=== PATIENT | male | born 1990 | race Caucasian/White ===

== ENCOUNTER 2019-10-02 16:17 | Emergency (ER) | payer SELFPAY ==
[2019-10-02 16:27] VITALS: BP 135/75; PULSE 75; RESP 18; TEMP 36.3; O2SAT 94; BMI 31.9
[2019-10-02] MEDS: lidocaine 1% INJ 20 mL INJECTION (16:34)
[2019-10-02] MEDS: tetanus-diphtheria tox (adult) 0.5 mL SDV IM (16:40)
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
[2019-10-02 16:52] VITALS: BP 135/75; PULSE 75; RESP 18; TEMP 36.3; O2SAT 94
== END 2019-10-02 17:14 | disposition home or self-care (01) ==
LOC: ER 16:58
PROVIDERS: Emergency Provider Emergency Medicine
DX: S81.811A Laceration without foreign body, right lower leg, initial encounter (principal); W26.8XXA Contact with other sharp object(s), not elsewhere classified, initial encounter; Z23 Encounter for immunization
CPT/HCPCS: 12002; 12345; 90471; 90714; 99281; 99282

== ENCOUNTER 2020-03-27 19:53 | Emergency (ER) | payer SELFPAY ==
[2020-03-27 19:57] VITALS: BP 172/109; PULSE 103; RESP 18; TEMP 36.9; O2SAT 98; BMI 33.0
--- NOTE | 2020-03-27 20:20 | XRR_ITS ---
PROCEDURE INFORMATION: Exam: XR Chest, 1 View Exam date and time: 03/27/2020 8:25 PM Age: 29 years old Clinical indication: Type not specified; Patient HX: Chest pain and heaviness goes down left arm; Additional info: Cp TECHNIQUE: Imaging protocol: XR of the chest Views: 1 view. COMPARISON: No relevant prior studies available. FINDINGS: Lungs: Hyperinflation , interstitial prominence, and mild left basilar airspace disease. Pleural space: No pleural effusion. Heart/Mediastinum: No cardiomegaly. Bones/joints: Unremarkable. XR/XR chest 1V portable [id number] IMPRESSION: Hyperinflation , interstitial prominence, and mild left basilar airspace disease.
--- NOTE | 2020-03-27 20:20 | ECG_ITS ---
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1990 Requested By: Aleyda Linton Order Number: [id number] Reading MD: VENITA BEVERLY Measurements Intervals [place] Rate: 93 P: 12 WI: 140 QRS: 78 QRSD: 102 T: 10 QT: 333 QTc: 414 Interpretive Statements SINUS RHYTHM LOW QRS VOLTAGE IN PRECORDIAL LEADS [QRS DEFLECTION < 1.0 mV IN CHEST LEADS] INCOMPLETE RIGHT BUNDLE BRANCH BLOCK [90+ ms QRS DURATION, TERMINAL R IN V1/V2, 40+ ms S IN I/aVL/V4/V5/V6] WARNING: DATA QUALITY MAY AFFECT INTERPRETATION No previous ECG available for comparison Electronically Signed On 03-28-2020 19:58:59 [employer]PERVIS[employer] by VENITA BEVERLY [id number]
[2020-03-27 20:29] VITALS: BP 146/70; PULSE 60; RESP 20; O2SAT 97
--- NOTE | 2020-03-27 20:42 | W.ED.CHESTPA ---
HPI - Chest Pain General: Chief Complaint: Chest Pain Stated Complaint: CP Time Seen by Provider: 03/27/20 20:38 Source: patient Mode of arrival: ambulatory Limitations: no limitations History of Present Illness: HPI narrative: 29-year-old male states has been having constant chest pain over the last 2 days. He states that it is been sharp in nature and is worse with palpation and movement. States is worse with deep breaths as well. He denies any shortness of breath. He denies any fever. He had no recent long trips or surgeries. Rates his pain a 4 out of 10 currently. MD complaint: chest pain Onset (ago): day(s) Associated symptoms: Deny abdominal pain, dyspnea, fever(s), nausea or vomiting Review of Systems Const: Denies: fever(s), chills, body aches or change in appetite Eyes: Denies: blurry vision or eye discomfort ENMT: Denies: throat pain or dental pain Card: Reports: chest pain Resp: Denies: dyspnea GI: Denies: abdominal pain, nausea, vomiting or diarrhea : Denies: dysuria Musc: Denies: neck pain or back pain Skin/Breast: Denies: rash Neuro: Denies: headache(s) Psych: Denies: depression Wilfredo/Lymph: Denies: easy bruising All/Imm: Denies: urticaria Physical Exam Const: COMMON NORMALS: no acute distress, patient oriented x3 and healthy appearing HENMT: COMMON NORMALS: normocephalic and atraumatic HEAD & SCALP: normocephalic and atraumatic Eye: COMMON NORMALS: Equal, round and reactive pupils present and EOMs intact bilaterally PUPIL: Yes Equal, round and reactive pupils present Neck/C-Spine: COMMON NORMALS: full ROM and supple Chest: COMMONS NORMALS: normal inspection of the chest OTHER: point tender to center of chest Resp: COMMON NORMALS: normal respiratory effort, No retractions, No use of accessory muscles and clear to auscultation bilaterally AUSCULTATION: clear to auscultation bilaterally Cardio: COMMON NORMALS: regular rate, regular rhythm and No murmurs present (Cardio) RATE: regular rate RHYTHM: regular rhythm GI: COMMON NORMALS: Normal to inspection, nondistended, normoactive bowel sounds present, Soft to palpation, non-tender and no masses PALPATION: Yes Soft to palpation Extremity: COMMON NORMALS: normal to inspection and full ROM Neuro: COMMON NORMALS: patient oriented x3, moves all extremities and no focal motor deficits Psych: COMMON NORMALS: mental status grossly normal, Normal thought process present and cooperative THOUGHT PROCESS: Normal thought process present Skin: COMMON NORMALS: no rashes or lesions noted and no wounds GENERAL SKIN EXAM: no rashes or lesions noted Course Vital Signs: Vital signs: Vital Signs Temperature 98.4 F 03/27/20 19:57 Pulse Rate 71 03/27/20 21:30 Respiratory Rate 17 03/27/20 21:30 Blood Pressure 128/68 03/27/20 21:30 Pulse Oximetry 100 03/27/20 21:30 MDM - Chest Pain MDM Narrative: Medical decision making narrative: Patient presents for chest pain that is likely muscular in nature as he is point tender. Patient's troponin EKG and x-ray are all normal. He is stable for discharge and is return if worsening. Lab Data: Labs: Lab Results 03/27/20 03/27/20 03/27/20 Range/Units 20:45 20:45 20:45 WBC 12.3 H (4.0-10.0) 10^3/ uL RBC 4.79 (4.1-5.3) 10^6/u L Hgb 14.5 (11.7-16.6) g/dL Hct 40.9 L (42.0-52.0) % MCV 85.4 (80-94) fL MCH 30.3 (28.0-34.0) pg MCHC 35.5 (30.0-36.0) g/dL RDW 12.9 (12.1-15.1) % Plt Count 254 (130-400) 10^3/c mm MPV 11.3 H (7.4-10.4) fL Neut % (Auto) 60.5 % Lymph % (Auto) 27.6 % Blair % (Auto) 7.1 % Eos % (Auto) 4.1 % Baso % (Auto) 0.5 % Neut # (Auto) 7.47 (1.8-7.7) 10^3/u L Lymph # (Auto) 3.4 (0.8-4.8) 10^3/u L Blair # (Auto) 0.9 (0.2-0.9) 10^3/u L Eos # (Auto) 0.5 (0.0-0.8) 10^3/u L Baso # (Auto) 0.1 (0.0-0.1) 10^3/u L Nucleated RBC % (a uto) 0 % Nucleated RBCs # 0.0 /100WBC Sodium 138 (136-145) mmol/L Potassium 3.6 (3.5-5.1) mmol/L Chloride 102 (98-107) mmol/L Carbon Dioxide 26 (22-29) mmol/L Anion Gap 13.6 (5-19) BUN 16 (6-20) mg/dL Creatinine 0.8 (0.7-1.2) mg/dL GFR Calculation 116.0 (90-130) mL/min Glucose 96 (65-115) mg/dL Calculated Osmolal ity 287 (285-295) mOsm/k g Calcium 9.6 (8.5-10.5) mg/dL Troponin T Baselin e 7 (0-15) ng/L Imaging Data^: CXR: Attestation: I personally reviewed and interpreted this imaging study as follows: My impression: no acute abnormality EKG Data^: EKG 1: Attestation: I personally reviewed and interpreted this EKG as follows: EKG interpretation date: 03/27/20 EKG interpretation time: 20:02 Interpretation: nsr hr [address] or t wave abnormalities qrs 102 qtc 383 Discharge Plan Discharge Patient Disposition: Home Clinical Impression: Chest pain Qualifiers: Chest pain type: unspecified Qualified Code(s): R07.9 - Chest pain, unspecified Condition: Stable Prescriptions: New Naprosyn 500 mg tablet 500 mg PO BID PRN (Reason: pain) Qty: 20 RF: 0 Discharge Orders: Discharge ED (Routine); Ordered 03/27/20 Ordered By: Aleyda Linton Discharge Diet: Advance as tolerated Discharge Activity: Resume usual activity Patient Instructions: Chest Pain - Chest Wall Coding Level of Care Code ED Television News Video Editor for Chg Fwd Exam Comprehensive
[2020-03-27 20:54] LABS: Basophils # 0.1 10^3/uL (0.0-0.1); Basophils % 0.5 %; Eosinophils # 0.5 10^3/uL (0.0-0.8); Eosinophils % 4.1 %; Hematocrit 40.9 % (42.0-52.0); Hemoglobin 14.5 g/dL (11.7-16.6); Lymphocytes # 3.4 10^3/uL (0.8-4.8); Lymphocytes % 27.6 %; Mean Corpuscular HGB Conc 35.5 g/dL (30.0-36.0); Mean Corpuscular Hemoglobin 30.3 pg (28.0-34.0); Mean Corpuscular Volume 85.4 fL (80-94); Mean Platelet Volume 11.3 fL (7.4-10.4); Monocytes # 0.9 10^3/uL (0.2-0.9); Monocytes % 7.1 %; Neutrophils # 7.47 10^3/uL (1.8-7.7); Neutrophils % 60.5 %; Nucleated Red Blood Cells % 0 %; Platelet Count 254 10^3/cmm (130-400); Red Blood Count 4.79 10^6/uL (4.1-5.3); Red Cell Distribution Width 12.9 % (12.1-15.1); White Blood Count 12.3 10^3/uL (4.0-10.0)
[2020-03-27 20:57] VITALS: O2SAT 99
[2020-03-27 21:00] VITALS: BP 160/86; PULSE 79; RESP 18; O2SAT 97
[2020-03-27 21:17] LABS: Anion Gap 13.6 (5-19); Blood Urea Nitrogen 16 mg/dL (6-20); Calcium 9.6 mg/dL (8.5-10.5); Carbon Dioxide 26 mmol/L (22-29); Chloride 102 mmol/L (98-107); Glucose 96 mg/dL (65-115); Osmolality Calculated 287 mOsm/kg (285-295); Potassium 3.6 mmol/L (3.5-5.1); Sodium 138 mmol/L (136-145)
[2020-03-27 21:19] LABS: Troponin(5th) Baseline 7 ng/L (0-15)
[2020-03-27 21:30] VITALS: BP 128/68; PULSE 71; RESP 17; O2SAT 100
[2020-03-27] MEDS: ketorolac 60 mg/2 mL INJ IM (21:37)
[2020-03-27 22:00] VITALS: BP 126/70; PULSE 76; RESP 20; O2SAT 96
== END 2020-03-27 22:09 | disposition home or self-care (01) ==
PROVIDERS: Emergency Provider Emergency Medicine
DX: R07.9 Chest pain, unspecified (principal)
CPT/HCPCS: 12345; 71045; 80048; 84484; 85025; 93005; 96372; 99282; 99283; J1885

== ENCOUNTER 2021-06-28 13:12 | Emergency (ER) | payer OTHER, SELFPAY ==
[2021-06-28 13:30] VITALS: BP 143/85; PULSE 69; RESP 16; TEMP 36.9; O2SAT 97; BMI 33.9
--- NOTE | 2021-06-28 13:40 | W.ED.EXTPRO ---
HPI - Extremity Problem General: Chief complaint: Extremity Injury, Upper Stated complaint: FB in right hand Time Seen by Provider: 06/28/21 13:38 History of Present Illness: Patient is a 31-year-old male who comes to the ED with fishhook in right hand. Patient is unsure how it happened but he excellently got fishhook caught in the palm of his right hand. It is an old and previously used fishhook. He is up-to-date on his tetanus. Associated symptoms: Deny chest pain, fever(s) or rash Review of Systems Const: Denies: fever(s), chills or fatigue Eyes: Denies: change in vision or eye discomfort ENMT: Denies: throat pain, odynophagia, nasal discharge or nasal congestion Card: Denies: chest pain, palpitations, edema, swelling of feet/ankles, dyspnea on exertion or orthopnea Resp: Denies: dyspnea, productive cough or non-productive cough GI: Denies: abdominal pain, nausea, vomiting, diarrhea, constipation or hematochezia : Denies: flank pain, difficulty urinating, dysuria or hematuria Musc: Denies: neck pain, back pain or extremity swelling Skin/Breast: Reports: other ([place] in right hand); Denies: rash or new lesions Neuro: Denies: headache(s), numbness in extremities or weakness in extremities PFS ED PFSH: Medical History No pertinent family history Surgical History No pertinent past surgical history Physical Exam Const: COMMON NORMALS: no acute distress, patient oriented x3, healthy appearing and alert GENERAL APPEARANCE: cooperative and comfortable HENMT: COMMON NORMALS: normocephalic HEAD & SCALP: normocephalic MOUTH: Normal oral and palatal mucosa present THROAT: posterior oropharynx normal and uvula midline Neck/C-Spine: COMMON NORMALS: supple GENERAL: Yes normal visual inspection Resp: COMMON NORMALS: normal respiratory effort, No retractions, No use of accessory muscles and clear to auscultation bilaterally AUSCULTATION: clear to auscultation bilaterally Cardio: COMMON NORMALS: regular rate, regular rhythm, S1 normal heart sound present, S2 normal heart sound present, No gallops present (Cardio), No clicks present (Cardio), No murmurs present (Cardio) and Peripheral pulses 2+ throughout RATE: regular rate RHYTHM: regular rhythm HEART SOUNDS: S1 normal heart sound present and S2 normal heart sound present PERIPHERAL PULSES: Peripheral pulses 2+ throughout GI: COMMON NORMALS: Normal to inspection, nondistended, normoactive bowel sounds present, Soft to palpation, non-tender and no masses PALPATION: Yes Soft to palpation : COMMON NORMALS: Yes no CVA tenderness BLADDER/KIDNEY EXAM: Yes no CVA tenderness Back/Pelvis: COMMON NORMALS: no CVA tenderness Extremity: NARRATIVE EXTREMITY EXAM: Right hand?patient has fishhook in palm of right hand Neuro: COMMON NORMALS: patient oriented x3 and moves all extremities SENSORIUM/ORIENTATION: Yes alert Skin: GENERAL SKIN EXAM: dry skin Procedures Foreign Body Removal Time Out Performed: yes Site: right and hand (Palm of hand) Description of foreign body: fish hook Sedation/Analgesia: other (Lidocaine 1% used as local) Technique: removal with forceps Confirmed by:: direct visualization Complications: none Neurovascular: no change from pre-procedure Course Vital Signs: Vital signs: Vital Signs Temperature 98.5 F 06/28/21 13:30 Pulse Rate 69 06/28/21 13:30 Respiratory Rate 16 06/28/21 13:30 Blood Pressure 143/85 06/28/21 13:30 Pulse Oximetry 97 06/28/21 13:30 MDM - Extremity (Nontraumatic) Medical Decision Making Patient is doing under male comes to the ED with a fishhook in right hand. Patient is up-to-date on his tetanus. Lidocaine 1% was used as local. I then was able to remove fishhook using forceps. Patient was discharged home with a prophylactic prescription for cephalexin. Return to ED precautions given. Follow-up with PCP in 7 to 10 days reevaluation. Patient understood and agree with plan. Discharge Plan Discharge Patient Disposition: Home Clinical Impression: Fish hook in hand Condition: Stable Prescriptions: New cephalexin 500 mg capsule 500 mg PO Q6H 4 Days Qty: 16 0RF No Action Naprosyn 500 mg tablet 500 mg PO BID PRN (Reason: pain) Qty: 20 0RF Discharge Orders: Discharge ED (Routine); Ordered 06/28/21 Ordered By: Rick Valerio Discharge Diet: Regular Discharge Activity: Resume usual activity Activity Restrictions/Additional Instructions: Follow-up with medical provider as directed in the next 7 to 10 days for reevaluation. Keep puncture wound site clean and you can apply triple antibiotic ointment on it and keep it covered with Band-Aid. Take medications as prescribed. Return to the ER or your medical provider if you start noticing any puslike drainage, swelling, erythema or warmth around puncture wound. Read and understand discharge instructions. Thank you for choosing [facility] for your healthcare needs today. Please realize this is an emergency room and that we are providing you with a medical screening exam and this may not be complete and all inclusive of all the testing and or work up that you may need to determine your ailment or severity of your illness. It is very important that you follow up as instructed or that you return to the Emergency Department should you have concerns or if your condition changes or worsens in any way. Coding Level of Care Code ED Fire Investigation Manager for Leo Villa Exam Comprehensive
== END 2021-06-28 14:28 | disposition home or self-care (01) ==
PROVIDERS: Emergency Provider Physician Assistant
DX: S61.441A Puncture wound with foreign body of right hand, initial encounter (principal); W45.8XXA Other foreign body or object entering through skin, initial encounter
CPT/HCPCS: 99282

== ENCOUNTER → 2022-06-11 11:59 | Outpatient (BNVA) | payer OTHER, SELFPAY | PROVIDERS: Visit Provider Nurse Practitioner Family | DX: N39.0 Urinary tract infection, site not specified (principal); R30.0 Dysuria | CPT/HCPCS: 81000; 87077; 87086; 87184 ==

== ENCOUNTER → 2022-06-25 10:34 | Outpatient (BNVA) | payer OTHER, SELFPAY | PROVIDERS: Visit Provider Family Medicine | DX: K64.4 Residual hemorrhoidal skin tags (principal); Z76.89 Persons encountering health services in other specified circumstances | CPT/HCPCS: 80053; 80061; 85025 ==

== ENCOUNTER → 2023-05-26 09:51 | Outpatient (BNVA) | payer OTHER, SELFPAY | PROVIDERS: Visit Provider Registered Nurse Neonatal Intensive Care | DX: R50.9 Fever, unspecified (principal) | CPT/HCPCS: 87400 ==